=== PATIENT | male | born 1950 | race Caucasian/White ===

== ENCOUNTER 2018-07-03 08:58 | Outpatient (CLI) | payer OTHER ==
--- NOTE | 2018-07-03 16:52 | MRI ---
MRI BRAIN WITH AND WITHOUT IV CONTRAST: Date: 07/03/18 HISTORY: Intracranial injury without loss of consciousness, initial encounter. FINDINGS: No restricted diffusion is seen. No evidence of infarct, hemorrhage, mass, midline shift, or abnormal extra-axial fluid collections seen. No abnormal postcontrast enhancement is noted. No restricted dif fusion is seen. There are a few tiny foci of T2 prolongation in the periventricular white matter. Occ asional tiny foci of decreased signal intensity on gradient echo sequences may represent hemosiderin. Ventricular size is appropriate and the basilar cisterns are patent. There is mucosal disease in the paranasal sinuses and fluid in the mastoid air cells. IMPRESSION: No evidence of acute intracranial process. POS: OFF
== END 2018-07-03 08:59 | disposition home or self-care (01) ==
LOC: SCSMRI 08:58
PROVIDERS: ATTEND Psychiatry & Neurology Neurology
DX: S06.890A Other specified intracranial injury without loss of consciousness, initial encounter (principal)
CPT/HCPCS: 70553; 82565